=== PATIENT | female | born 1955 | race African-American/Black ===

== ENCOUNTER → 2017-03-01 | Outpatient (CLI) | payer MEDICARE ==
[~2017-03-01] MED LIST: AMLO10TA80 PO; ASPI-1035 PO; D-ME118S13 PO; OMEP40CA34 PO; PRAV80TA21 PO; SERT25TA74 PO
== END | disposition home or self-care (01) ==
LOC: RAD 11:29
PROVIDERS: ATTEND Internal Medicine
DX: M47.897 Other spondylosis, lumbosacral region (principal)
CPT/HCPCS: 72100